=== PATIENT | female | born 1985 | race African-American/Black ===

== ENCOUNTER 2017-12-09 18:28 | Inpatient (IN) | payer OTHER ==
[2017-12-09 19:49] VITALS: BMI 29.1
--- NOTE | 2017-12-09 21:22 | HP ---
CIWA Score - CIWA Score Nausea/Vomitin-Mild Nausea/No Vomiting Muscle Tremors: 4-Moderate,w/Arms Extend Anxiety: 4-Mod. Anxious/Guarded Agitation: 1-Slight > Activity Paroxysmal Sweats: 4-Forehead w/Sweat Beads Orientation: 0-Oriented Tacttile Disturbances: 0-None Auditory Disturbances: 0-None Visual Disturbances: 0-None Headache: 0-None Present CIWA-Ar Total Score: 14 Admission ROS S - HPI Chief Complaint: Alcohol withdrawal symptoms Allergies/Adverse Reactions: Allergies Allergy/AdvReac Type Severity Reaction Status Date / Time Penicillins Allergy Severe Hives Verified 12/09/17 20:47 History of Present Illness: 32 years old female with 5 years of alcohol dependence is admitted to detox. Patient has been in previous detox and reports insignificant period of sobriety. She has medical history of asthma, seizure, depression, GERD, back pain and anxiety. She reports suicide attempt in 2013 but denies suicidal ideation at this time. Exam Limitations: No Limitations - Ebola screening Have you traveled outside of the country in the last 21 days: No Have you had contact with anyone from an Ebola affected area: No Have you been sick,other than usual withdrawal symptoms: No Do you have a fever: No - Review of Systems Constitutional: Chills, Loss of Appetite, Night Sweats, Changes in sleep, Unexplained wgt Loss (reports about 20lbs weight loss) EENT: reports: No Symptoms Reported Respiratory: reports: No Symptoms reported Cardiac: reports: No Symptoms Reported GI: reports: Poor Appetite : reports: No Symptoms Reported Musculoskeletal: reports: Muscle Pain, Muscle Weakness, Neck Pain, Other (right shoulder stiffness) Integumentary: reports: Flushing Neuro: reports: Tingling, Tremors Endocrine: reports: No Symptoms Reported Hematology: reports: No Symptoms Reported Psychiatric: reports: Mood/Affect Appropiate, Orientated x3, Anxious, Depressed Other Systems: Reviewed and Negative Patient History - Patient Medical History Hx Anemia: No Hx Asthma: Yes Hx Chronic Obstructive Pulmonary Disease (COPD): No Hx Cancer: No Hx Cardiac Disorders: No Hx Congestive Heart Failure: No Hx Hypertension: No Hx Hypercholesterolemia: No HX Cerebrovascular Accident: No Hx Seizures: Yes (Last episode 2016) Hx Diabetes: No Hx Gastrointestinal Disorders: Yes (GERD) Hx Liver Disease: No Hx Genitourinary Disorders: No Hx Sexually Transmitted Disorders: No Hx Renal Disease (ESRD): No Hx Thyroid Disease: No Hx Human Immunodeficiency Virus (HIV): No (Negative 2016) Hx Hepatitis C: No (Negative 2016) Hx Depression: Yes Hx Suicide Attempt: Yes (2013. Denies suicidal ideation at this time) Hx Bipolar Disorder: Yes Hx Schizophrenia: No - Patient Surgical History Past Surgical History: No Hx Neurologic Surgery: No Hx Cataract Extraction: No Hx Cardiac Surgery: No Hx Lung Surgery: No Hx Breast Surgery: No Hx Breast Biopsy: No Hx Abdominal Surgery: No Hx Appendectomy: No Hx Cholecystectomy: No Hx Genitourinary Surgery: No Hx Section: No Hx Orthopedic Surgery: No Anesthesia Reaction: No - PPD History Previous Implant?: Yes Documented Results: Negative w/o proof Implanted On Prior [facility] Admission?: No PPD to be Administered?: Yes - Reproductive History Patient is a Female of Child Bearing Age (11 -55 yrs old): Yes Last Menstrual Period: 11/08/17 Patient : No - Smoking Cessation Smoking history: Current every day smoker Have you smoked in the past 12 months: Yes Aproximately how many cigarettes per day: 7 Hx Chewing Tobacco Use: No Initiated information on smoking cessation: Yes 'Breaking Loose' booklet given: 12/09/17 - Substance & Tx. History Hx Alcohol Use: Yes Hx Substance Use: Yes Substance Use Type: Marijuana Hx Substance Use Treatment: Yes ([facility] February 2015) - Substances Abused Alcohol Route: Oral Frequency: Daily Amount used: LIQUOR- 3 PINTS, BEER- 1 SIX PACK Age of first use: 15 Date of Last Use: 12/08/17 Marijuana/Hashish Route: Smoking Frequency: Daily Amount used: 10 BLUNTS Age of first use: 19 Date of Last Use: 12/09/17 Family Disease History - Family Disease History Family History: Denies Admission Physical Exam BHS - Vital Signs Vital Signs: Vital Signs - 24 hr 12/09/17 19:43 Temperature 98.8 F Pulse Rate 72 Respiratory 19 Rate Blood Pressure 130/83 - Physical General Appearance: Yes: Moderate Distress, Tremorous, Irritable, Sweating, Anxious HEENTM: Yes: EOMI, Normal ENT Inspection, Normal Voice, JIE Respiratory: Yes: No Respiratory Distress, Wheezing Neck: Yes: Supple Breast: Yes: Breast Exam Deferred Cardiology: Yes: Regular Rhythm, Regular Rate, S1, S2 Abdominal: Yes: Normal Bowel Sounds, Soft Genitourinary: Yes: [place], Vaginal Discharge Back: Yes: Within Normal Limits Musculoskeletal: Yes: Back pain, Other (shoulder pain) Extremities: Yes: Tremors Neurological: Yes: Alert, Normal Mood/Affect, Normal Response Integumentary: Yes: Warm Lymphatic: Yes: Within Normal Limits - Diagnostic (1) Alcohol dependence with uncomplicated withdrawal Current Visit: Yes Status: Chronic (2) Cannabis dependence Current Visit: Yes Status: Chronic (3) Asthma Current Visit: Yes Status: Chronic (4) Seizure Current Visit: Yes Status: Chronic (5) Nicotine dependence Current Visit: Yes Status: Chronic (6) GERD (gastroesophageal reflux disease) Current Visit: Yes Status: Chronic (7) Back pain Current Visit: Yes Status: Chronic (8) Depression Current Visit: Yes Status: Chronic (9) Anxiety Current Visit: Yes Status: Chronic BHS Breath Alcohol Content Breath Alcohol Content: 0 Urine Pregancy Test - Result Urine Test Results: Negative- NO Line Present Urine Drug Screen - Results Drug Screen Negative: No Urine Drug Screen Results: THC-Marijuana
[2017-12-09] MEDS ORDERED: MAGNESIUM CITRATE 300 ML BOTTLE PO PRN (21:40)
[2017-12-09] MEDS ORDERED: LOPERAMIDE HCL 2 MG CAPSULE PO PRN (21:40)
[2017-12-09] MEDS ORDERED: P-EPHED 60MG/TRIPROLIDI 2.5MG TABLET PO PRN (21:40)
[2017-12-09] MEDS ORDERED: MAG HYDROX/AL HYDROX/SIMETH 30 ML UNIT-DOSE CUP PO PRN (21:40)
[2017-12-09] MEDS ORDERED: guaiFENesin/D-METHORPHAN HB 10 ML UNIT-DOSE CUPS PO PRN (21:40)
[2017-12-09] MEDS ORDERED: IBUPROFEN 400 MG TABLET (FP) PO PRN (21:40)
[2017-12-09] MEDS ORDERED: MENTHOL/PHENOL 1 EACH UD MM PRN (21:40)
[2017-12-09] MEDS ORDERED: NICOTINE POLACRILEX 2 MG GUM BUC PRN (21:40)
[2017-12-09] MEDS ORDERED: chlordiazePOXIDE HCL 25 MG CAPSULE PO PRN (21:40)
[2017-12-09] MEDS ORDERED: ACETAMINOPHEN 325 MG TABLET (FP) PO PRN (21:40)
[2017-12-09] MEDS ORDERED: MAGNESIUM HYDROX 2400MG/30ML ORAL SUSPENSION 30 ML CUP PO PRN (21:40)
[2017-12-09] MEDS ORDERED: ALBUTEROL SO4 18 GM HFA INHALER IH SCH (22:00)
[2017-12-09] MEDS: chlordiazePOXIDE HCL 25 MG CAPSULE PO SCH (23:00)
[2017-12-09] MEDS: THIAMINE HCL 100 MG TABLET (FP) PO SCH (23:01)
[2017-12-10] MEDS: chlordiazePOXIDE HCL 25 MG CAPSULE PO SCH ×4 (05:37→22:31)
[2017-12-10] MEDS ORDERED: ALBUTEROL SO4 18 GM HFA INHALER IH ONE (05:39)
[2017-12-10] MEDS: ALBUTEROL SO4 18 GM HFA INHALER IH SCH ×4 (07:40→22:34)
--- NOTE | 2017-12-10 07:44 | CONSULT ---
[facility] Psychiatric Consult - Data Date of interview: 12/10/17 Admission source: [facility] Identifying data: This is 32 years old female, unemployed, on PA, living alone, with psychiatric hospitalization history intoxicated with: Alcohol, Cannabis and Nicotine Substance Abuse History: - Smoking Cessation. Smoking history: Current every day smoker. Have you smoked in the past 12 months: Yes. Aproximately how many cigarettes per day: 7. Hx Chewing Tobacco Use: No. Initiated information on smoking cessation: Yes. 'Breaking Loose' booklet given: 12/09/17. - Substance & Tx. History. Hx Alcohol Use: Yes. Hx Substance Use: Yes. Substance Use Type : Marijuana. Hx Substance Use Treatment: Yes ([facility] Harper February 2015). - Substances Abused. Alcohol. Route: Oral. Frequency: Daily. Amount used: LIQUOR- 3 PINTS, BEER- 1 SIX PACK. Age of first use: 15. Date of Last Use: 12/08/17. Marijuana/Hashish. Route: Smoking. Frequency: Daily. Amount used: 10 BLUNTS. Age of first use: 19. Date of Last Use: 12/09/17 Medical History: Asthma, Seizure history, GERD Psychiatric History: PATIENT REPORTS HISTORY OF ANXIETY AND DEPRESSION, REPORTS TAKING PRIOR TO ADMISSION: AMBIEEN 5MG POP QHS. LEXAPRO 10MG POQD. Patyient reports history of psychiatric admission on 2015 at [facility] for safety Physical/Sexual Abuse/Trauma History: Denies Additional Comment: AMBIEEN 5MG POP QHS. LEXAPRO 10MG POQD Mental Status Exam - Mental Status Exam Alert and Oriented to: Person Cognitive Function: Fair Patient Appearance: Unkempt Mood: Sad Affect: Flat Patient Behavior: Guarded Speech Pattern: Delayed Voice Loudness: Mildly Soft/Quiet Thought Process: Circumstantial, Goal Oriented Thought Disorder: Being Controlled Hallucinations: Denies Suicidal Ideation: Denies Homicidal Ideation: Denies Insight/Judgement: Fair Sleep: Difficulty falling asleep Appetite: Fair Muscle strength/Tone: Mild Hypotonicity Gait/Station: Shuffling Additional Comments: AMBIEEN 5MG POP QHS. LEXAPRO 10MG POQD Psychiatric Findings - Problem List ([place] 1, 2,3) (1) Drug-induced mood disorder Current Visit: Yes Status: Acute (2) Alcohol dependence with uncomplicated withdrawal Current Visit: Yes Status: Chronic (3) Anxiety Current Visit: Yes Status: Chronic (4) Cannabis dependence Current Visit: Yes Status: Chronic (5) Nicotine dependence Current Visit: Yes Status: Chronic - Initial Treatment Plan Initial Treatment Plan: AMBIEEN 5MG POP QHS. LEXAPRO 10MG POQD. Refusing to restart Lexapro
--- NOTE | 2017-12-10 08:03 | EKG ---
Test Reason : Blood Pressure : / mmHG Vent. Rate : 061 BPM Atrial Rate : 061 BPM P-R Int : 186 ms QRS Dur : 094 ms QT Int : 396 ms P-R-T Axes : 047 074 033 degrees QTc Int : 398 ms NORMAL SINUS RHYTHM NORMAL ECG NO PREVIOUS ECGS AVAILABLE Confirmed by MADELIN SAENZ, NIKOLAI ([id number]) on 12/10/2017 8:03:04 AM Referred By: Confirmed By:NIKOLAI YUSUF MD
[2017-12-10] MEDS ORDERED: ZOLPIDEM TARTRATE 5 MG TABLET PO PRN ×2 (09:26→22:00)
--- NOTE | 2017-12-10 09:54 | PN ---
S CIWA - CIWA Score Nausea/Vomitin-No Nausea/No Vomiting Muscle Tremors: 4-Moderate,w/Arms Extend Anxiety: 3 Agitation: 3 Paroxysmal Sweats: 1-Minimal Palms Moist Orientation: 0-Oriented Tacttile Disturbances: 0-None Auditory Disturbances: 0-None Visual Disturbances: 0-None Headache: 0-None Present CIWA-Ar Total Score: 11 BHS Progress Note (SOAP) Subjective: tremor sweat anxiety agitation Objective: 12/10/17 09:53 Vital Signs Temperature 97.2 F L 12/10/17 06:25 Pulse Rate 65 12/10/17 06:25 Respiratory Rate 16 12/10/17 06:25 Blood Pressure 120/72 12/10/17 06:25 O2 Sat by Pulse Oximetry (%) lab not available Assessment: 12/10/17 09:54 withdrawal sx Plan: continue detox
[2017-12-10 10:09] LABS: HEMATOCRIT 36.5 % (32.4-45.2); HEMOGLOBIN 12.1 GM/dL (10.7-15.3); MCHC 33.1 g/dl (32.0-36.0); MEAN CELL VOLUME 93.8 fl (80-96); MEAN PLT VOLUME 8.1 fl (7.5-11.1); PLATELET COUNT 255 K/MM3 (134-434); RBC 3.89 M/mm3 (3.60-5.2); RDW 14.1 % (11.6-15.6); WHITE BLOOD COUNT 5.8 K/mm3 (4.0-10.0)
[2017-12-10 10:13] LABS: CHLORIDE 107 mmol/L (98-107); SODIUM 140 mmol/L (136-145)
[2017-12-10 10:24] LABS: ALBUMIN 3.4 g/dl (3.4-5.0); ALK PHOS 26 U/L (45-117); ANION GAP 8 (8-16); BILIRUBIN,TOTAL 0.2 mg/dL (0.2-1.0); BLOOD UREA NITROGEN 10 mg/dL (7-18); CALCIUM 8.8 mg/dL (8.5-10.1); CO2 25 mmol/L (21-32); CREATININE 0.7 mg/dL (0.55-1.02); GLUCOSE,RANDOM 88 mg/dL (74-106); SGOT/AST 11 U/L (15-37); SGPT/ALT 18 U/L (12-78); TOT PROT 5.9 g/dl (6.4-8.2)
[2017-12-10] MEDS: PRENATAL VITAMINS W/ FOLIC ACID TABLET (FP) PO SCH (10:57)
[2017-12-10] MEDS: NICOTINE 14 MG/24 HOURS TOPICAL PATCH TD SCH (10:58)
[2017-12-10] MEDS: PHENYTOIN NA EXTENDED 100 MG CAPSULE (FP) PO SCH (10:58)
[2017-12-10 17:18] LABS: URINE APPEARANCE CLEAR; URINE BILIRUBIN NEGATIVE (NEGATIVE); URINE BLOOD NEGATIVE (NEGATIVE); URINE COLOR LTYELLOW; URINE GLUCOSE (UA) NEGATIVE (NEGATIVE); URINE KETONE NEGATIVE (NEGATIVE); URINE LEUK ESTERASE NEGATIVE (NEGATIVE); URINE NITRITE NEGATIVE (NEGATIVE); URINE PROTEIN NEGATIVE (NEGATIVE); URINE UROBILINOGEN NEGATIVE mg/dL (0.2-1.0)
[2017-12-10] MEDS: THIAMINE HCL 100 MG TABLET (FP) PO SCH (22:31)
[2017-12-11] MEDS: chlordiazePOXIDE HCL 25 MG CAPSULE PO SCH ×2 (05:52→10:48)
[2017-12-11] MEDS: ALBUTEROL SO4 18 GM HFA INHALER IH SCH ×2 (08:12→13:11)
--- NOTE | 2017-12-11 09:06 | PN ---
S CIWA - CIWA Score Nausea/Vomitin-No Nausea/No Vomiting Muscle Tremors: 2 Anxiety: 2 Agitation: 2 Paroxysmal Sweats: 1-Minimal Palms Moist Orientation: 0-Oriented Tacttile Disturbances: 0-None Auditory Disturbances: 0-None Visual Disturbances: 0-None Headache: 0-None Present CIWA-Ar Total Score: 7 BHS Progress Note (SOAP) Subjective: feel better less tremor less sweat less anxious Objective: 12/11/17 09:04 Vital Signs Temperature 97.9 F 12/11/17 06:00 Pulse Rate 71 12/11/17 06:00 Respiratory Rate 18 12/11/17 06:00 Blood Pressure 104/58 12/11/17 06:00 O2 Sat by Pulse Oximetry (%) Laboratory Last Values WBC 5.8 K/mm3 (4.0-10.0) 12/10/17 07:00 RBC 3.89 M/mm3 (3.60-5.2) 12/10/17 07:00 Hgb 12.1 GM/dL (10.7-15.3) 12/10/17 07:00 Hct 36.5 % (32.4-45.2) 12/10/17 07:00 MCV 93.8 fl (80-96) 12/10/17 07:00 MCH 31.0 pg (25.7-33.7) 12/10/17 07:00 MCHC 33.1 g/dl (32.0-36.0) 12/10/17 07:00 RDW 14.1 % (11.6-15.6) 12/10/17 07:00 Plt Count 255 K/MM3 (134-434) 12/10/17 07:00 MPV 8.1 fl (7.5-11.1) 12/10/17 07:00 Sodium 140 mmol/L (136-145) 12/10/17 07:00 Potassium 4.0 mmol/L (3.5-5.1) 12/10/17 07:00 Chloride 107 mmol/L (98-107) 12/10/17 07:00 Carbon Dioxide 25 mmol/L (21-32) 12/10/17 07:00 Anion Gap 8 (8-16) 12/10/17 07:00 BUN 10 mg/dL (7-18) 12/10/17 07:00 Creatinine 0.7 mg/dL (0.55-1.02) 12/10/17 07:00 Creat Clearance w eGFR > 60 (>60) 12/10/17 07:00 Random Glucose 88 mg/dL (74-106) 12/10/17 07:00 Calcium 8.8 mg/dL (8.5-10.1) 12/10/17 07:00 Total Bilirubin 0.2 mg/dL (0.2-1.0) 12/10/17 07:00 AST 11 U/L (15-37) L 12/10/17 07:00 ALT 18 U/L (12-78) 12/10/17 07:00 Alkaline Phosphatase 26 U/L (45-117) L 12/10/17 07:00 Total Protein 5.9 g/dl (6.4-8.2) L 12/10/17 07:00 Albumin 3.4 g/dl (3.4-5.0) 12/10/17 07:00 Urine Color Ltyellow 12/10/17 15:00 Urine Appearance Clear 12/10/17 15:00 Urine pH 7.0 (5.0-8.0) 12/10/17 15:00 Ur Specific [place] 1.019 (1.001-1.035) 12/10/17 15:00 Urine Protein Negative (NEGATIVE) 12/10/17 15:00 Urine Glucose (UA) Negative (NEGATIVE) 12/10/17 15:00 Urine Ketones Negative (NEGATIVE) 12/10/17 15:00 Urine Blood Negative (NEGATIVE) 12/10/17 15:00 Urine Nitrite Negative (NEGATIVE) 12/10/17 15:00 Urine Bilirubin Negative (NEGATIVE) 12/10/17 15:00 Urine Urobilinogen Negative mg/dL (0.2-1.0) 12/10/17 15:00 Ur Leukocyte Esterase Negative (NEGATIVE) 12/10/17 15:00 RPR Titer Nonreactive (NONREACTIVE) 12/10/17 07:00 lab noted Assessment: 12/11/17 09:04 mild withdrawal sx Plan: continue medically supervised detox
[2017-12-11] MEDS: PRENATAL VITAMINS W/ FOLIC ACID TABLET (FP) PO SCH (10:48)
[2017-12-11] MEDS: PHENYTOIN NA EXTENDED 100 MG CAPSULE (FP) PO SCH (10:48)
[2017-12-11] MEDS: NICOTINE 14 MG/24 HOURS TOPICAL PATCH TD SCH (10:55)
[2017-12-11 11:22] VITALS: BP 112/58; PULSE 67; TEMP 97.2
--- NOTE | 2017-12-11 13:52 | DS ---
[facility] Detox Discharge Summary Admission Date: 12/09/17 Discharge Date: 12/11/17 - History Present History: Alcohol Dependence Pertinent Past History: 32 years old female admitted to for alcohol detox, wants to leave the facility today, through counselor nurses and provider discussion the benefits of complete the detox, patient agrees to stay till tomorrow, alcohol detox regimen had been tailored according to the needs of the patient after lunch the patient wants to leave the facility and states that [facility] appointment confirmed and insists to leave the facility patient left the facility today and medication e prescribed to the pharmacy - Physical Exam Results Vital Signs: Vital Signs Temperature 97.2 F L 12/11/17 10:00 Pulse Rate 67 12/11/17 10:00 Respiratory Rate 18 12/11/17 10:00 Blood Pressure 112/58 12/11/17 10:00 O2 Sat by Pulse Oximetry (%) Pertinent Admission Physical Exam Findings: withdrawal sx Laboratory Last Values WBC 5.8 K/mm3 (4.0-10.0) 12/10/17 07:00 RBC 3.89 M/mm3 (3.60-5.2) 12/10/17 07:00 Hgb 12.1 GM/dL (10.7-15.3) 12/10/17 07:00 Hct 36.5 % (32.4-45.2) 12/10/17 07:00 MCV 93.8 fl (80-96) 12/10/17 07:00 MCH 31.0 pg (25.7-33.7) 12/10/17 07:00 MCHC 33.1 g/dl (32.0-36.0) 12/10/17 07:00 RDW 14.1 % (11.6-15.6) 12/10/17 07:00 Plt Count 255 K/MM3 (134-434) 12/10/17 07:00 MPV 8.1 fl (7.5-11.1) 12/10/17 07:00 Sodium 140 mmol/L (136-145) 12/10/17 07:00 Potassium 4.0 mmol/L (3.5-5.1) 12/10/17 07:00 Chloride 107 mmol/L (98-107) 12/10/17 07:00 Carbon Dioxide 25 mmol/L (21-32) 12/10/17 07:00 Anion Gap 8 (8-16) 12/10/17 07:00 BUN 10 mg/dL (7-18) 12/10/17 07:00 Creatinine 0.7 mg/dL (0.55-1.02) 12/10/17 07:00 Creat Clearance w eGFR > 60 (>60) 12/10/17 07:00 Random Glucose 88 mg/dL (74-106) 12/10/17 07:00 Calcium 8.8 mg/dL (8.5-10.1) 12/10/17 07:00 Total Bilirubin 0.2 mg/dL (0.2-1.0) 12/10/17 07:00 AST 11 U/L (15-37) L 12/10/17 07:00 ALT 18 U/L (12-78) 12/10/17 07:00 Alkaline Phosphatase 26 U/L (45-117) L 12/10/17 07:00 Total Protein 5.9 g/dl (6.4-8.2) L 12/10/17 07:00 Albumin 3.4 g/dl (3.4-5.0) 12/10/17 07:00 Urine Color Ltyellow 12/10/17 15:00 Urine Appearance Clear 12/10/17 15:00 Urine pH 7.0 (5.0-8.0) 12/10/17 15:00 Ur Specific [place] 1.019 (1.001-1.035) 12/10/17 15:00 Urine Protein Negative (NEGATIVE) 12/10/17 15:00 Urine Glucose (UA) Negative (NEGATIVE) 12/10/17 15:00 Urine Ketones Negative (NEGATIVE) 12/10/17 15:00 Urine Blood Negative (NEGATIVE) 12/10/17 15:00 Urine Nitrite Negative (NEGATIVE) 12/10/17 15:00 Urine Bilirubin Negative (NEGATIVE) 12/10/17 15:00 Urine Urobilinogen Negative mg/dL (0.2-1.0) 12/10/17 15:00 Ur Leukocyte Esterase Negative (NEGATIVE) 12/10/17 15:00 RPR Titer Nonreactive (NONREACTIVE) 12/10/17 07:00 lab noted - Treatment Hospital Course: Detox Protocol Followed, Responded well - Medication Discharge Medications: Ambulatory Orders Albuterol Sulfate Inhaler - [Ventolin Hfa Inhaler -] 1 - 2 inh PO QID 12/09/17 Escitalopram Oxalate [Lexapro -] 10 mg PO DAILY 12/09/17 Phenytoin Na Extended [Dilantin -] 100 mg PO DAILY 12/09/17 Zolpidem Tartrate [Ambien] 5 mg PO HS 12/09/17 - AMA Did Patient Leave Against Medical Advice: Yes
[2017-12-11] MEDS ORDERED: chlordiazePOXIDE 5 MG CAPSULE PO SCH (23:00)
[2017-12-12] MEDS ORDERED: chlordiazePOXIDE HCL 10 MG CAPSULE PO SCH (23:00)
== END 2017-12-11 13:50 | disposition left against medical advice (07) | DRG 770 ==
LOC: YASAS 18:28 → Y6N 21:48
PROVIDERS: ADMIT Internal Medicine; ATTEND Internal Medicine
PROC: HZ2ZZZZ Detoxification Services for Substance Abuse Treatment (ICD-10-PCS; principal; 2017-12-09)
DX: F10.230 Alcohol dependence with withdrawal, uncomplicated (principal); F12.20 Cannabis dependence, uncomplicated; F17.210 Nicotine dependence, cigarettes, uncomplicated; F19.24 Other psychoactive substance dependence with psychoactive substance-induced mood disorder; F31.9 Bipolar disorder, unspecified; F41.9 Anxiety disorder, unspecified; G40.909 Epilepsy, unspecified, not intractable, without status epilepticus; K21.9 Gastro-esophageal reflux disease without esophagitis; Z91.5 Personal history of self-harm
CPT/HCPCS: 36415; 80053; 81003; 85027; 86593; 93005; 93010